=== PATIENT | male | born 1955 | race Caucasian/White ===

== ENCOUNTER 2020-08-21 11:47 | Observation (INO) | payer MEDICARE, OTHER, SELFPAY ==
[2020-08-21] VITALS (9 sets, daily range): BP systolic 128–191; BP diastolic 51–86; PULSE 53–75; RESP 14–22; TEMP 36–36.6; O2SAT 92–95; BMI 43.7
--- NOTE | 2020-08-21 11:59 | ED.NEUROSD ---
HPI - Neuro Symptoms/Deficit General Chief Complaint: Neuro Symptoms/Deficit Stated Complaint: right side drooling, feels weird Time Seen by Provider: 08/21/20 11:49 Source: patient and family Mode of arrival: Ambulatory Limitations: no limitations History of Present Illness HPI Narrative: 64-year-old male smoker with coronary artery disease (2 prior MIs), hypertension, hyperlipidemia, COPD presents with his in the chief complaint of neurologic symptoms that have been present since he awoke yesterday morning. states his last known normal was Saturday evening at bedtime. Since yesterday he has been complaining of slurring speech, some right-sided facial weakness, drooling and he states that he had a hard time getting his coffee mug to his mouth. He denies any dizziness or lightheadedness. He denies any chest pain or shortness of breath. He has had no fever or chills. He denies any trauma or head injuries. He has never had a stroke or a TIA before. He denies any changes medications. He is not activated as a code stroke as he is outside of any interventional window based on time last seen normal. Onset (ago): day(s) Timing confirmed by: spouse Location: speech, right face and dysarthria History of same: No Severity: moderate Quality: weak and numb Relieving factors: none Exacerbating factors: none Context: other On Anticoagulants: No Associated symptoms: denies other symptoms Treatments Prior to Arrival: none Related Data Home Medications Medication Instructions Recorded Confirmed ASPIRIN (Aspirin Low Dose) 81 mg PO Q DAY #0 06/22/07 Clopidogrel Hydrogen Sulfate 75 mg PO Q DAY #0 06/22/07 (Plavix) Metoprolol Tartrate (Lopressor) 50 mg PO BID #0 06/22/07 Simvastatin (Zocor) 40 mg PO #0 06/22/07 Allergies Allergy/AdvReac Type Severity Reaction Status Date / Time No Known Drug Allergies Allergy Verified 08/21/20 12:03 Review of Systems Constitutional Constitutional: Denies chills, Denies fatigue, Denies fever(s), Denies frequent falls, Denies lethargy and Reports weakness Eyes Eyes: Denies change in vision, Denies eye discharge, Denies irritation and Denies loss of vision ENT Ears, Nose, Mouth, and Throat: Denies change in voice, Denies dizziness, Denies neck pain, Denies sore throat and Denies throat swelling Cardiovascular Cardiovascular: Denies chest pain, Denies irregular heart rhythm, Denies lightheadedness, Denies palpitations, Denies dyspnea, Denies dyspnea on exertion and Denies orthopnea Respiratory Respiratory: Denies cough, Denies dyspnea, Denies dyspnea on exertion and Denies wheezing Gastrointestinal Gastrointestinal: Denies abdominal pain, Denies change in bowel habits, Denies diarrhea, Denies nausea and Denies vomiting Musculoskeletal Musculoskeletal: Denies neck pain and Reports numbness Integumentary/Breasts Skin/Breast: Denies pruritus, Denies erythema, Denies rash and Denies wounds Neurologic Neurologic: Reports abnormal speech, Denies behavioral changes, Denies confusion, Denies dizziness, Denies frequent falls, Denies loss of vision, Reports numbness and Reports weakness Psychiatric Psychiatric: Denies anxiety, Denies behavioral changes, Denies confusion, Denies depression, Denies homicidal ideation and Denies suicidal ideation Endocrine Endocrine: Denies fatigue, Denies flushing and Denies palpitations Hematologic/Lymphatic Hematologic/Lymphatic: Denies easy bruising Allergic/Immunologic Allergic/Immunologic: Denies urticaria, Denies throat swelling and Denies wheezing Patient History Medical History CAD (coronary artery disease) COPD (chronic obstructive pulmonary disease) HTN (hypertension) Hyperlipidemia Myocardial infarct Smoker Social History household members: spouse Smoking Status: Current every day smoker alcohol intake: current Smoking Status: Current every day smoker alcohol intake frequency: 0-2 drinks per day Substance Use Type: does not use Exam Narrative Exam Narrative: GENERAL: [64] year old patient appears stated age. Well-nourished, well-developed patient, in mild distress. Ambulating on his own. BMI 43.7 HEAD: Atraumatic. Normocephalic. EYES: Pupils equal round and reactive. Extraocular motions intact. No scleral icterus. No injection or drainage. ENT: Nose without bleeding, purulent drainage. Throat without erythema, tonsillar hypertrophy or exudate. Airway patent. NECK: Trachea midline. Non tender CARDIOVASCULAR: Regular rate and rhythm without murmurs, gallops, or rubs. RESPIRATORY: Decreased breath sounds bilaterally with prolonged expiratory phase and some expiratory wheeze throughout GASTROINTESTINAL: Abdomen soft, non-tender, nondistended. EXTREMITIES: No edema or joint tenderness. BACK: Nontender without deformity or crepitance. No flank tenderness. NEURO: AOx3. SKIN: No rash or erythema of visible areas Initial Vital Signs Initial Vital Signs: Vital Signs Temperature 97.8 F 08/21/20 11:57 Pulse Rate 64 08/21/20 11:57 Respiratory Rate 22 08/21/20 11:57 Blood Pressure 191/86 H 08/21/20 11:57 Pulse Oximetry 95 08/21/20 11:57 Scores NIH Stroke Scale Level of Conciousness: Alert, keenly responsive Ask month/age: Answers both questions correctly. Open/close eyes, close hand: Performs both tasks correctly Best gaze horizontal: Normal Visual payne: No visual loss Facial palsy: Minor paralysis, flattened nasolabial fold, asymmetry on smiling Left arm drift: No drift for full 10 sec Right arm drift: No drift for full 10 sec Left leg drift: No drift for full 5 sec Right leg drift: No drift for full 5 sec Limb ataxia: Absent Sensory on face/arms/legs: Normal, no sensory loss Best language: No aphasia, normal Dysarthria: Mild to mod,some slurring Extinction or inattention: No abnormality Total NIH Stroke scale score: 2 Course Orders Ordered: ED Orders 08/21/20 11:59 CT head/brain wo con Stat XR chest 1V Stat Urine Drug Screen, Rapid Stat EKG-12 Lead Stat 08/21/20 12:00 COVID19 Stat 08/21/20 12:25 Basic Metabolic Panel Stat Complete Blood Count AUTO DIFF Stat Partial Thromboplastin Time Stat Prothrombin Time INR Stat Troponin & CK Cardiac Panel Stat Sodium Chloride (Normal Saline 0.9%) 1,000 mls @ 150 mls/hr IV CONT BRENDAN Last Infusion: 08/21/20 13:32 Dose: 0 mls/hr Documented by: Admin: 08/21/20 12:43 Dose: 150 mls/hr Documented by: GIRMA Discontinued Medications Aspirin (Aspirin 81 Mg Chew Tab) 324 mg PO NOW ONE Stop: 08/21/20 13:01 Last Admin: 08/21/20 13:07 Dose: 324 mg Documented by: CHRISTIANO Vital Signs Vital signs: Vital Signs - 8 hr 08/21/20 11:57 08/21/20 11:59 08/21/20 12:00 Temperature 97.8 F Pulse Rate 64 66 64 Respiratory Rate 22 Blood Pressure 191/86 H 191/86 H Pulse Oximetry 95 94 92 08/21/20 12:30 Temperature Pulse Rate 60 Respiratory Rate 17 Blood Pressure 152/70 H Pulse Oximetry 92 MDM - Neuro Symptoms/Deficit Lab Data Result diagrams: 08/21/20 12:25 08/21/20 12:25 Labs: Lab Results 08/21/20 08/21/20 08/21/20 Range/Units 12:00 12:25 12:25 WBC 9.1 (4.5-11.0) X10^3/uL RBC 5.04 (4.5-5.9) X10^6/uL Hgb 16.1 (13.5-17.5) g/dL Hct 48.7 (41-53) % MCV 96.6 (80-100) fL MCH 32.0 (26-34) PG MCHC 33.1 (30-36) % RDW 13.4 (11.6-14.8) % Plt Count 191 (150-400) X10^3/uL Neut % (Auto) 64.1 (50-75) % Lymph % (Auto) 26.4 (25-40) % Rabun % (Auto) 7.5 (3-14) % Eos % (Auto) 1.2 L (2-4) % Baso % (Auto) 0.8 (0-2) % Neut # (Auto) 5800 (1940-0704) /uL Lymph # (Auto) 2400 (2293-9617) /uL Rabun # (Auto) 700 (0-900) /uL Eos # (Auto) 100 (0-450) /uL Baso # (Auto) 100 (0-100) /uL PT 11.4 (10.1-12.7) SECONDS INR 1.0 (0.9-1.3) APTT 31 (26.4-36.2) SECONDS Sodium (137-145) mmol/L Potassium (3.4-5.1) mmol/L Chloride (98-107) mmol/L Carbon Dioxide (22-32) mmol/L BUN (9-20) mg/dL Creatinine (0.66-1.25) mg/dL Estimated GFR (>60) mL/min BUN/Creatinine Ratio (6-22) Glucose (80-110) mg/dL Calcium (8.4-10.2) mg/dL Total Creatine Kinase (55-170) U/L CK-MB (CK-2) (<2.37) ng/mL CK-MB (CK-2) Rel Index (1.5-5.0) % Troponin I (0.01-0.034) ng/mL SARS-CoV-2 (PCR) Negative (Negative) 08/21/20 Range/Units 12:25 WBC (4.5-11.0) X10^3/uL RBC (4.5-5.9) X10^6/uL Hgb (13.5-17.5) g/dL Hct (41-53) % MCV (80-100) fL MCH (26-34) PG MCHC (30-36) % RDW (11.6-14.8) % Plt Count (150-400) X10^3/uL Neut % (Auto) (50-75) % Lymph % (Auto) (25-40) % Rabun % (Auto) (3-14) % Eos % (Auto) (2-4) % Baso % (Auto) (0-2) % Neut # (Auto) (7038-6704) /uL Lymph # (Auto) (2581-7598) /uL Rabun # (Auto) (0-900) /uL Eos # (Auto) (0-450) /uL Baso # (Auto) (0-100) /uL PT (10.1-12.7) SECONDS INR (0.9-1.3) APTT (26.4-36.2) SECONDS Sodium 138 (137-145) mmol/L Potassium 4.5 (3.4-5.1) mmol/L Chloride 102 (98-107) mmol/L Carbon Dioxide 32 (22-32) mmol/L BUN 15 (9-20) mg/dL Creatinine 0.63 L (0.66-1.25) mg/dL Estimated GFR > 60.0 (>60) mL/min BUN/Creatinine Ratio 23.8 H (6-22) Glucose 172 H (80-110) mg/dL Calcium 8.5 (8.4-10.2) mg/dL Total Creatine Kinase 131 (55-170) U/L CK-MB (CK-2) 3.52 H (<2.37) ng/mL CK-MB (CK-2) Rel Index 2.7 (1.5-5.0) % Troponin I 0.065 H (0.01-0.034) ng/mL SARS-CoV-2 (PCR) (Negative) Point of Care Testing Glucose POC [address] scan - head: Radiologist's Impression: [address] [id number] Scan ReportSigned Patient: Jesse RojasMR#: [id number]: 4Acct:[id number]/Sex: 64 / MDate of Service: 08/21/20Loc: EDAccession Number: [id number] Procedure: CT head/brain wo con Ordering Provider: Delfin Alba D.O. PROCEDURE: CT HEAD/BRAIN WO CON INDICATIONS: stroke symptoms, outside window for TPA TECHNIQUE: Noncontrast 4.5 mm thick angled axial sections acquired from the foramen magnum to the vertex, with coronal and sagittal reformats. For radiation dose reduction, the following was used: automated exposure control, adjustment of mA and/or kV according to patient size. COMPARISON: [facility], CR, XR CHEST 1V, 08/21/2020, 12:06. FINDINGS: Image quality: Excellent. CSF spaces: Basal cisterns are patent. No extra-axial fluid collections. The ventricles are symmetric in size and shape. Brain: No intracranial bleeds or masses. There is cerebral volume loss for age, with resultant ventricular and sulcal prominence. There are periventricular and deep white matter chronic small vessel ischemic changes. There is a remote appearing infarction seen involving the left basal ganglia/deep white matter. There is intracranial internal carotid artery atherosclerosis. Skull and face: Calvarium and visualized facial bones appear intact, without suspicious lesions. Sinuses: There is moderate mucosal thickening seen involving the left maxillary sinus, with moderate to prominent mucosal thickening within the ethmoid air cells. There is demineralization seen of the medial wall of the left maxillary sinus and the ethmoid air cell septations. Milder mucosal thickening is seen elsewhere. No abnormal fluid is seen within the mastoid air cells. IMPRESSION: No acute intracranial hemorrhage is seen. No acute intracranial process is seen. Remote left basal ganglia/deep white matter infarction. If there is strong clinical suspicion for an acute stroke, please consider an MRI for further evaluation, as it is more sensitive (assuming that there is no contraindication to MRI). Chronic appearing paranasal sinus disease. Dictated by: Richar Murphy M.D. on 08/21/2020 at 11:29 Approved by: Richar Murphy M.D. on 08/21/2020 at 11:31 Chest x-ray: Radiologist's Impression: [address] [id number] ReportSigned Patient: Joss Rojas#: [id number]: 4Acct:[id number]/Sex: 64 / MDate of Service: 08/21/20Loc: EDAccession Number: [id number] Procedure: XR chest 1V Ordering Provider: Delfin Alba D.O. PROCEDURE: XR CHEST 1V INDICATIONS: stroke evaluation, weakness TECHNIQUE: One view of the chest was acquired. COMPARISON: [facility], CT, CT ANGIO CHEST PE, 01/11/2020, 23:29. [facility], CT, CT HEAD/BRAIN WO CON, 08/21/2020, 12:00. [facility], CR, CHEST 1 VIEW, 06/22/2007, 13:40. FINDINGS: This study is limited by body habitus. Surgical changes and devices: None. Lungs and pleura: Mild interstitial prominence can be seen. No pleural effusions or pneumothorax. Mediastinum: The cardiac contours are within normal limits. The aorta demonstrates calcification and tortuosity. Bones and chest wall: No suspicious bony lesions. Overlying soft tissues appear unremarkable. IMPRESSION: Mild interstitial prominence can be seen. Differential diagnosis includes artifact and mild pulmonary edema. Dictated by: Richar Murphy M.D. on 08/21/2020 at 11:27 Approved by: Richar Murphy M.D. on 08/21/2020 at 11:29 ECG Data Attestation: I personally reviewed and interpreted this ECG as follows: Interpretation: Normal sinus rhythm, rate 64. Occasional PVCs. No obvious ST segmental elevations or depressions. No T-wave inversions Discharge Plan Departure Patient Disposition: Admitted As Inpatient Clinical Impression: Cerebrovascular accident Qualifiers: CVA mechanism: unspecified Qualified Code(s): I63.9 - Cerebral infarction, unspecified Admit Date/Time: 08/21/20 13:01 Admit Provider: Balbina Davis
[2020-08-21 12:27] LABS: COVID19 -Nasal RAPID Negative (Negative)
[2020-08-21 12:35] LABS: Add Manual Diff / Slide Review NO; Basophils Absolute Auto 100 /uL (0-100); Basophils Percent Auto 0.8 % (0-2); Eosinophils Absolute Auto 100 /uL (0-450); Eosinophils Percent Auto 1.2 % (2-4); Hematocrit 48.7 % (41-53); Hemoglobin 16.1 g/dL (13.5-17.5); Lymphocytes Absolute Auto 2400 /uL (1100-4500); Lymphocytes Percent Auto 26.4 % (25-40); Mean Corpuscular HGB Conc 33.1 % (30-36); Mean Corpuscular Volume 96.6 fL (80-100); Monocytes Absolute Auto 700 /uL (0-900); Monocytes Percent Auto 7.5 % (3-14); Neutrophils Absolute Auto 5800 /uL (1500-7000); Neutrophils Percent Auto 64.1 % (50-75); Platelet Count 191 X10^3/uL (150-400); Red Blood Cell Count 5.04 X10^6/uL (4.5-5.9); Red Cell Distribution Width 13.4 % (11.6-14.8); White Blood Cell Count 9.1 X10^3/uL (4.5-11.0)
[2020-08-21] MEDS: SODIUM CHLORIDE 0.9% 1,000 ML 150 ML IV (12:43)
[2020-08-21 12:44] LABS: Prothrombin Time 11.4 SECONDS (10.1-12.7)
[2020-08-21 12:46] LABS: PTT Partial Thromboplastin Tim 31 SECONDS (26.4-36.2)
[2020-08-21 12:54] LABS: BUN Creatinine Ratio 23.8 (6-22); Blood Urea Nitrogen 15 mg/dL (9-20); Calcium 8.5 mg/dL (8.4-10.2); Carbon Dioxide 32 mmol/L (22-32); Chloride 102 mmol/L (98-107); Creatine Kinase 131 U/L (55-170); Estimated Glomerular Filt Rate > 60.0 mL/min (>60); Glucose 172 mg/dL (80-110); Potassium 4.5 mmol/L (3.4-5.1); Sodium 138 mmol/L (137-145)
[2020-08-21 13:06] LABS: Troponin I 0.065 ng/mL (0.01-0.034)
[2020-08-21] MEDS: ASPIRIN 81 MG CHEW TAB 324 MG PO (13:07)
[2020-08-21 13:09] LABS: CKMB % Relative Index 2.7 % (1.5-5.0); Creatine Kinase MB 3.52 ng/mL (<2.37)
[2020-08-21 13:10] LABS: HEMOLYSIS 60 (0-50)
--- NOTE | 2020-08-21 16:16 | DI.ECHO.S_ITS ---
[place] [facility]---------+ [facility] +---------+ : : [address] : [address] : : : : [id number] : : : : Phone: [phone] Echocardiogram Report + + :Name: SAGE GUEVARA Study Date: 08/22/2020 Height: 71 in : :[facility] Weight: 313 lb : : Gender: Male BSA: 2.6 m2 : :: 1955 Age: 64 yrs BP: 128/72 mmHg: :Reason For Study: R/O EMBOLIC FOCUS : :Ordering Physician: NEAL, : :LEESA Performed By: Elke Fierro : :Referring: LEESA DE JESUS : + + Interpretation Summary 1) Mild to moderately enlarged left ventricle with mildly reduced systolic function (EF 45-50%). 2) Apical septum and apical inferior wall are severely hypokinetic. The distal anterior wall and distal anterolateral wall extending to the apex are hypokinetic. 3) There is no thrombus on the left ventricle. 4) The right ventricle grossly appears normal in size with probable normal systolic function. 5) No significant valvular abnormalities. 6) Compared to the Echo done 01/12/2020, distal anterolateral wall hypokinesis is new on this study. Procedure: A two-dimensional transthoracic echocardiogram with color flow and Doppler was performed. The study quality was technically adequate. A contrast injection of Definity was performed to improve assessment of LV function. Comparison is made with the echocardiogram of 01/12/2020. The patient was in sinus bradycardia with heart rates between 56-64 bpm during the exam. Left Ventricle: The estimated left ventricular end diastolic volume is 207 ml. The left ventricle is moderately dilated. There is normal left ventricular wall thickness. There is no thrombus. The ejection fraction is estimated to be 45-50%. Apical septum and apical inferior wall are severely hypokinetic. The distal anterior wall and distal anterolateral wall extending to the apex are hypokinetic. Right Ventricle: The right ventricle grossly appears normal in size with probable normal systolic function. Atria: Borderline left atrial enlargement. Right atrial size is normal. There is no Doppler evidence for an interatrial shunt. Mitral Valve: There is mild mitral annular calcification. The mitral valve leaflets appear mildly thickened, but open well. There is trace mitral regurgitation. Aortic Valve: The aortic valve is trileaflet. The aortic valve is mildly calcified. There is no aortic valve stenosis. No aortic regurgitation is present. Tricuspid Valve: The tricuspid valve is not well visualized, but is grossly normal. No tricuspid regurgitation. Pulmonary artery pressures cannot be estimated because of the lack of a measurable TR jet velocity but the IVC suggests a CVP of around 3 mmHg. Pulmonic Valve: The pulmonic valve leaflets are thin and pliable; valve motion is normal. There is no pulmonic valvular regurgitation. Great Vessels: The aortic root is normal size. The dimensions of the ascending aorta are normal. The IVC is of normal diameter and collapses greater than 50% with a sniff. This suggests a low right atrial pressure of 3 mm Hg. Pericardium/ Pleura There is no pericardial effusion. There is no pleural effusion. MMode/2D Measurements & Calculations LVIDd: 6.3 cm LVOT diam: 2.2 cm EPSS: 2.4 cm Ao root diam: 3.8 cm IVSd: 1.1 cm asc Aorta Diam: 3.2 cm LVPWd: 0.98 cm LV gómez. diameter/BSA (cm/m^2): 2.5 LA A2 area: 25.0 cm2 RA long axis: 5.0 cm LA A4 area: 21.1 cm2 RA area: 17.3 cm2 LA length (vol): 5.3 cm RA vol: 51.3 ml LA vol: 85.3 ml RA : 20.1 ml/m2 LA vol index: 33.4 ml/m2 IVC diam: 1.7 cm RVD1 (basal): 3.7 cm TAPSE: 3.1 cm Doppler Measurements & Calculations Ao V2 max: 179.2 cm/sec LVOT Max Elian: 67.4 cm/sec Ao V2 mean: 133.2 cm/sec LV V1 max P.8 mmHg Ao max P.8 mmHg LV V1 VTI: 16.5 cm Ao mean P.5 mmHg LILLIE(I,D): 1.5 cm2 Ao V2 VTI: 42.1 cm LILLIE(V,D): 1.5 cm2 sev ratio: 0.39 LILLIE indexed to BSA (cm^2/m^2): 0.59 MV E max elian: 85.8 cm/sec PA V2 max: 80.4 cm/sec MV A max elian: 112.1 cm/sec PA V2 mean: 50.3 cm/sec MV E/A: 0.77 PA mean P.2 mmHg Med Peak E' Elian: 4.7 cm/sec PA pr(Accel): 7.1 mmHg E/E' med: 18.3 Lat Peak E' Elian: 7.3 cm/sec E/E' lat: 11.7 E/e' average: 15.0 MV dec time: 0.30 sec SV(OT): 63.7 ml Reading Physician:02:29 PM
--- NOTE | 2020-08-21 16:19 | P.HP_ITS ---
History of Present Illness History of Present Illness Date Patient Seen: 08/21/20 Chief complaint: right side drooling, feels weird Narrative: The patient is a 64-year-old male with a history of coronary artery disease, COPD, type 2 diabetes, hypertension, hyperlipidemia who was in his [facility] until Saturday morning. The patient awoke from sleep and felt ?not right. He states he went to have coffee in noted drooling out the right side of his mouth, he also noted that when he tried to bring his cup to his mouth he was unable to do so. He had some associated right hand right arm weakness. He had a twinge of pain in the right arm. He reports that his speech is abnormal in not as crisp as usual. The patient has no history of stroke. He presented to the emergency room for evaluation. In the emergency plating department helper CT was obtained which was negative. Patient had a EKG which showed no acute ST-T changes. Patient is on Plavix and aspirin for his cardiac disease. He also reports smoking a pack per day. He has no family history of stroke. Patient is admitted to the hospital for inpatient evaluation probable stroke Patient History Medical History CAD (coronary artery disease) COPD (chronic obstructive pulmonary disease) Diabetes mellitus HTN (hypertension) Hyperlipidemia Myocardial infarct Other bursal cyst, left elbow Patent pressure equalization (PE) tubes, bilateral Smoker Surgical History H/O heart artery stent H/O: vasectomy Family & Social History Family History (Updated 08/21/20 @ 16:24 by Balbina Davis MD) Mother Cancer Father Alcoholic dependence syndrome Social History: household members spouse Prior Living Arrangements House Safety & Behavioral: Feels Safe in Current Yes Environment Been Physically Hurt or No Threatened By a Person Suicidal Ideation Description None Suicide Plan Description No Plan Tobacco & Substance use: Tobacco type cigarettes Smoking Status Current every day smoker Smoking packs per day 1 alcohol intake current alcohol intake frequency holiday/special occasion Substance Use Type does not use Meds Home Medications and Allergies Home Medications Medication Instructions Recorded Confirmed Type ASPIRIN (Aspirin Low Dose) 81 mg PO Q DAY #0 06/22/07 08/21/20 History Clopidogrel Hydrogen Sulfate 75 mg PO Q DAY #0 06/22/07 History (Plavix) Metoprolol Tartrate (Lopressor) 50 mg PO BID #0 06/22/07 History Simvastatin (Zocor) 40 mg PO #0 06/22/07 History metformin 1,000 mg PO BID 08/21/20 08/21/20 History Allergies Allergy/AdvReac Type Severity Reaction Status Date / Time animal dander AdvReac Verified 08/21/20 15:02 grass pollen AdvReac Verified 08/21/20 15:02 pollen extracts AdvReac Verified 08/21/20 15:02 Review of Systems Review of Systems ROS: Yes All systems reviewed with the patient and are negative except as otherwise documented Exam Vital Signs (past 8 hours): - 08/21/20 11:57 08/21/20 11:59 08/21/20 12:00 Temperature 97.8 F Pulse Rate 64 66 64 Respiratory Rate 22 Blood Pressure 191/86 H 191/86 H Pulse Oximetry 95 94 92 08/21/20 12:30 08/21/20 13:45 Temperature 97.4 F L Pulse Rate 60 61 Respiratory Rate 17 20 Blood Pressure 152/70 H 161/58 H Pulse Oximetry 92 94 Oxygen Delivery Method Room Air Oxygen Flow Rate 0 Narrative Exam Narrative: Pleasant obese male sitting in a chair in no obvious distress HEENT: Normocephalic atraumatic, extraocular muscles are intact oropharynx is clear, patient's speech is dysarthric, he has right facial droop with drooling on the right side of the mouth Oropharynx is clear, neck is supple, there is no carotid bruits, thyromegaly or adenopathy Lungs: Decreased breath sounds with diffuse wheezing bilaterally, with scattered rhonchi Cardiac exam: Regular rate and rhythm normal S1-S2 Abdomen: Soft nontender nondistended, protuberant belly no appreciable hepatosplenomegaly Extremities: 1+ edema on the right, trace edema on the left Neuro exam: NIHSS score of 2 Patient has right facial droop, drooling out of the right side, mild dysarthria of speech Psychiatric exam: The patient is awake and alert and appropriate, no hallucinations, no delusions, Objective Labs Result Diagrams: 08/21/20 12:25 08/21/20 12:25 Labs: Laboratory Results - last 24 hr 08/21/20 08/21/20 08/21/20 12:00 12:25 12:25 WBC 9.1 RBC 5.04 Hgb 16.1 Hct 48.7 MCV 96.6 MCH 32.0 MCHC 33.1 RDW 13.4 Plt Count 191 Neut % (Auto) 64.1 Lymph % (Auto) 26.4 Braxton % (Auto) 7.5 Eos % (Auto) 1.2 L Baso % (Auto) 0.8 Neut # (Auto) 5800 Lymph # (Auto) 2400 Braxton # (Auto) 700 Eos # (Auto) 100 Baso # (Auto) 100 PT 11.4 INR 1.0 APTT 31 Sodium Potassium Chloride Carbon Dioxide BUN Creatinine Estimated GFR BUN/Creatinine Ratio Glucose Calcium Total Creatine Kinase CK-MB (CK-2) CK-MB (CK-2) Rel Index Troponin I SARS-CoV-2 (PCR) Negative 08/21/20 12:25 WBC RBC Hgb Hct MCV MCH MCHC RDW Plt Count Neut % (Auto) Lymph % (Auto) Braxton % (Auto) Eos % (Auto) Baso % (Auto) Neut # (Auto) Lymph # (Auto) Braxton # (Auto) Eos # (Auto) Baso # (Auto) PT INR APTT Sodium 138 Potassium 4.5 Chloride 102 Carbon Dioxide 32 BUN 15 Creatinine 0.63 L Estimated GFR > 60.0 BUN/Creatinine Ratio 23.8 H Glucose 172 H Calcium 8.5 Total Creatine Kinase 131 CK-MB (CK-2) 3.52 H CK-MB (CK-2) Rel Index 2.7 Troponin I 0.065 H SARS-CoV-2 (PCR) Assessment & Plan Assessment & Plan narrative: 1. 64-year-old male admitted to the hospital with abrupt onset neurological symptoms. His symptoms of right facial droop, dysarthria, right hand weakness highly suggestive of an acute ischemic event -head CT is unremarkable for an acute bleed, there is a remote deep white matter basal ganglia infarct noted which is old -patient did attempt head MRI is unable to tolerated -clinical symptoms highly suggestive of a left MCA CVA -will continue aspirin and Plavix given history cardiac disease, if the patient could switch from aspirin and Plavix could consider Aggrenox instead for stroke prophylaxis -will obtain cardiac echo to rule out an embolic focus -will obtain a fasting lipid profile, and increase atorvastatin to 80 mg per day -will obtain PT OT and speech consultation -patient will be placed on DVT prophylaxis -patient is encouraged to discontinue smoking as this is likely a major contributor to his stroke 2. Type 2 diabetes -will obtain hemoglobin A1c -will continue metformin as the patient likely will be discharged tomorrow 3. Hypertension -will continue metoprolol 50 b.i.d. -given recent ischemic event will allow for permissive hypercapnia and not over treat high blood pressure 4. Hyperlipidemia -will obtain a fasting lipid profile -will start atorvastatin 80 mg a day 5. Morbid obesity -likely contributing to metabolic syndrome resulting in coronary disease and stroke -dietary consultation 6. Tobacco dependence -offered nicotine patch which the patient except -smoking cessation counseling ensued Patient reports he is a full code His is his surrogate decision maker Anticipate discharge home tomorrow following cardiac echo Consider open MRI as he was unable to tolerate are MRI here to definitively evaluate for an acute stroke Quality VTE Deep Vein Thrombosis/Pulmonary Embolism Present on Admission: No
[2020-08-21] MEDS: SODIUM CHLORIDE 0.9% 1,000 ML 84 ML IV (16:55)
[2020-08-21] MEDS: NICOTINE 21 MG PATCH TOP (16:58)
[2020-08-21 18:14] LABS: Thyroid Stimulating Hormone 3.24 uIU/mL (0.47-4.68)
[2020-08-21 18:17] LABS: Hemoglobin A1C% w Est Avg Glu 10.2 % (4.0-6.0)
[2020-08-21 18:23] LABS: Creatine Kinase 126 U/L (55-170)
[2020-08-21 18:36] LABS: Troponin I 0.078 ng/mL (0.01-0.034)
[2020-08-21 18:39] LABS: Creatine Kinase MB 3.74 ng/mL (<2.37)
[2020-08-21] MEDS: FLUTICASONE/SALMETEROL 500/50 60 PUFF DISKUS INH (19:23)
[2020-08-21] MEDS: ALBUTEROL/IPRATROPIUM 3 ML AMPUL INH (19:24)
[2020-08-21] MEDS: GLUCAGON,HUMAN RECOMBINANT 1 MG/ML VIAL IV (21:16)
[2020-08-22] VITALS (9 sets, daily range): BP systolic 142–161; BP diastolic 70–84; PULSE 57–67; RESP 16–22; TEMP 35.9–36.6; O2SAT 91–94
--- NOTE | 2020-08-22 00:21 | PC.NURSE ---
2305 Received safe hand-off report. The patient is currently sleeping on his left side with HOB elevated to 30 degrees. He is on room air and has a left AC PIV with NS infusing at 84mL/h. Labs show he has had an elevated troponin x2, but currently denies chest pain, SOB, dizziness, n/v. He is on aspiration precautions and NPO. Lung sounds of the anterior upper lobe exhibit inspiratory and expiratory wheezing. Last blood glucose was 73 at 2111; will repeat at 0200. The bed alarm is on. No s/sx of distress.
[2020-08-22] MEDS: DEXTROSE 5%-0.9% NS 1,000 ML 84 ML IV ×2 (01:59→14:00)
[2020-08-22 02:00] LABS: UR Morphine/Opiate cutoff 300 Negative (Negative); Ur Creatinine 50 (Normal); Ur Specific Gravity 1.025 (Normal); Urine Amphetamines Negative (Negative); Urine Barbiturates Negative (Negative); Urine Benzodiazepines Negative (Negative); Urine Cocaine Negative (Negative); Urine MDMA Negative (Negative); Urine Methadone Negative (Negative); Urine Methamphetamines Negative (Negative); Urine Oxycodone Negative (Negative); Urine Phencyclidine Negative (Negative); Urine Tetrahydrocannabinol Negative (Negative); Urine Tricyclic Antidepressant Negative (Negative); Urine pH 5 (Normal)
[2020-08-22] MEDS: ALBUTEROL/IPRATROPIUM 3 ML AMPUL INH ×2 (07:55→13:04)
[2020-08-22] MEDS: FLUTICASONE/SALMETEROL 500/50 60 PUFF DISKUS INH (07:55)
[2020-08-22] MEDS: METOPROLOL ER 50 MG TABLET PO (09:18)
[2020-08-22] MEDS: ASPIRIN EC 81 MG TABLET PO (09:18)
[2020-08-22] MEDS: CLOPIDOGREL 75 MG TABLET PO (09:18)
[2020-08-22] MEDS: ENOXAPARIN 40 MG/0.4 ML SYRINGE SUBCUT (09:18)
--- NOTE | 2020-08-22 10:05 | PT.IIE ---
Surgical History (Last Reviewed 08/21/20 @ 16:23 by Balbina Davis MD) H/O heart artery stent H/O: vasectomy Medical History CAD (coronary artery disease) COPD (chronic obstructive pulmonary disease) Diabetes mellitus HTN (hypertension) Hyperlipidemia Myocardial infarct Other bursal cyst, left elbow Patent pressure equalization (PE) tubes, bilateral Smoker Physical Therapy Inpatient Evaluation/Re-Eval M1 PT/OT-IP Prior Functional Status Start: 08/22/20 08:54 Freq: NEEDED Status: Active Protocol: Document 08/22/20 10:05 AW (Rec: 08/22/20 11:25 AW [id number]) Medical Review Prior Functional Status Medical History Reviewed Yes Communication WNL. Pt is an effective verbal communicator. Pt's often tells him he is soft-spoken at baseline. On evaluation, pt has slightly slurred speech. Pt is aware and states it's not as crisp as usual. Mobility and Gait Independent without assistive device but winded after a few blocks. Activities of Daily Living and IADL's Independent with all I/ADL's Prior Functional Level (Other details) Pt denies any falls in the past year. Social History Household Members spouse Living Arrangements House Number of Floors (Floors) One Floor Number of Stairs To Enter/Railing? 3 MERARY ih wide bilateral rails Home Environment Standard Height Toilet,Tub/ Shower Employment Status Retired Additional Social History Comment Pt is retired from the [employer]. He lives with his , Praveena, who is available and able to assist as needed. M2 PT-IP Current Condition Start: 08/22/20 08:54 Freq: NEEDED Status: Active Protocol: Document 08/22/20 10:05 AW (Rec: 08/22/20 11:25 AW [id number]) Physical Therapy Current Condition Current Condition Evaluation Date 08/22/20 Treatment Diagnosis R-sided weakness, impaired proprioception, difficulty in walking Onset Date 08/20/20 M3 PT-IP Subjective Start: 08/22/20 08:54 Freq: NEEDED Status: Active Protocol: Document 08/22/20 10:05 AW (Rec: 08/22/20 11:25 AW [id number]) Subjective Physical Therapy Visit Type Type Initial Evaluation Visit Start Time 09:36 Visit Stop Time 10:05 Total Visit Minutes 29 Notes Pt has history of COPD and is a current smoker. A1C 10.[address] head was negative except for remote appearing infarction seen involving the left basal ganglia/deep white matter. There is intracranial internal carotid artery atherosclerosis. Brain MRI was unobtainable as pt could not tolerate closed MRI. Number of COSTUMING SUPERVISOR Visits 0 Physical Therapy Visit Comments Patient Comments I could just tell something was 'off.' I lifted my coffee cup and it should have been at my mouth but it was still an inch away from the target. Patient Goals Pt wants to return home. Therapy Pain Assessment Pain When Pain Assessed During Mobility Pain Present Pain Present Denied Pain M4 PT-IP Mobility and Gait Start: 08/22/20 08:54 Freq: NEEDED Status: Active Protocol: Document 08/22/20 10:05 AW (Rec: 08/22/20 11:25 AW [id number]) PT-Transfer Assessment Sit to and From Stand Sit to and from Stand Standby Assistance Equipment Transfer Assistive Device Gait Belt Orthotic/Prosthetic Devices or Brace: No Transfers Transfer Destination Chair Transfer Technique Stand Step Pivot Transfer Ability Level of Assist Standby Assistance Comments Mobility Comments Pt was sitting up in the chair as PT arrived. He was working with the POT PRESS OPERATOR to get changed and cleaned up. PT observed pt standing at the sink performing hygiene with SBA. Pt moves somewhat impulsively and required cues to slow down . PT then took over as pt transferred to the chair SBA. After seated assessment, pt stood again and ambulated around the unit a total of 220 feet SBA to CGA, completing 4 -item DGI along the way. On return to the room, pt sat in the chair again. BP was 154/62 HR 60. Gait Assessment Gait Gait Assistance Required: Standby Assistance,Contact Guard Assist Distance (Feet) 220 Assistive Devices Assistive Device None,Gait Belt Orthotic/Prosthetic Devices or Brace: No Gait Deviations General Gait Pattern Decreased Feet Clearance, Lateral Trunk Lean,Wide Based Gait Factors Limiting Gait Function Factors Limiting Gait Function Decreased Strength,Poor Balance,Poor Safety Awareness Comments Gait Comments Pt ambulated in the halls without AD. He scored 9/12 on 4-item DGI with single points deducted for gait with head turns, gait with head nods, and gait with speed changes. Pt had minor path deviations and LOB requiring CGA during head movements. Stair Climbing Assessment Evaluation Level of Assist On Stairs Standby Assistance Technique/Endurance Stair Climbing Direction Ascend and Descend Stair Climbing Technique Step Over Step,Step to Step Number of Steps Climbed 3 Query Text: Stair Climbing Set # Repetitions (reps) 2 PT-Balance Assessment Sitting Balance and Reactions Static Sitting Balance Ability Normal Dynamic Sitting Balance Ability Normal Standing Balance and Reactions Static Standing Balance Ability Good Dynamic Standing Balance Ability Fair Device Used none Balance Tests Romberg WNL EO; increased sway EC Tandem Standing unable Functional Assessments Functional Tests Dynamic Gait Index 4-item DGI: 04/30 M5 PT-IP Objective Assessments Start: 08/22/20 08:54 Freq: NEEDED Status: Active Protocol: Document 08/22/20 10:05 AW (Rec: 08/22/20 11:25 AW [id number]) Orientation Orientation/Cognition Level of Alertness Alert Orientation Name,Day of Week,Place, Situation Language Function Ability No Deficits Noted Safety Awareness Decreased Safety Awareness Memory Description No Deficits Noted Gross Range of Motion Upper Extremity ROM Assessment Within Functional Limits Lower Extremity ROM Assessment Within Functional Limits Strength Upper Extremity Strength Assessment Right Impaired Lower Extremity Strength Assessment Right Impaired Comments Strength Comments RUE/LE grossly 4+/5; LUE/LE grossly 5/5 Coordination Assessment Gross Coordination Gross Coordination Impaired Assessment Finger to Nose Test Minimal Impairment Pronation/Supination Test Normal Performance Foot Tapping Test Normal Performance Coordination Comments Missed targets with RUE <1cm on multiple attempts Sensation Assessment Sensation Gross Sensation WNL,Right UE Impaired Proprioception (Position) Impaired Comments Sensation Comments Pt reports mismatch between perceived motor output and actual motor output. I lift my coffee cup and it feels like it should be at my mouth but it's not quite there. Muscle Tone Muscle Tone WNL Yes M6 PT-IP Treatment Start: 08/22/20 08:54 Freq: NEEDED Status: Active Protocol: Document 08/22/20 10:05 AW (Rec: 08/22/20 11:25 AW [id number]) Physical Therapy Treatment Education Education Provided Safety Other Treatments Other Treatment Performed Provided education on role of PT, plan of care, and recommendation for outpatient PT to address dynamic balance and proprioception deficits. M7 PT-IP Assessment and Plan Start: 08/22/20 08:54 Freq: NEEDED Status: Active Protocol: Document 08/22/20 10:05 AW (Rec: 08/22/20 11:25 AW [id number]) PT Summary Assessment and Plan Potential Rehabilitation Potential Good Status of Condition at Evaluation Evolving Summary Impairments Strength,Balance,Sensation, Gait,Activity Tolerance Assessment Summary Jesse is a 64yo is a right- handed man seen for PT evaluation after being admitted with RUE and right facial weakness, dysarthria. Head CT noted prior remote appearing infarction of the left basal ganglia/deep white matter and intracranial internal carotid artery atherosclerosis. He is independent in all regards at baseline. On evaluation, he presents with impaired proprioception on the RUE and impaired dynamic balance. Speech remains slurred. 4-item DGI score of 9/12 indicates increased risk of falling. Pt would benefit from outpatient PT to address these deficits and mitigate increase falls risk. Goals Bed Mobility Goal Independent Transfer Goal Independent Gait Goal Independent Gait Distance 300 Other Goals - up/down 3 steps with unilateral rail IND Days to Meet Goals 5 Frequency of Treatment Frequency Of Treatment Once a Day Treatment Plan Physical Therapy Treatment Plan Bed Mobility Training,Transfer Training,Gait Training, Therapeutic Exercise,Balance Retraining,Discharge Planning, Neuromuscular Re-ed Other Recommendations and Next Treatment Full DGI or FGA; dynamic Focus balance training Recommendations To Nursing Amount of Assist Needed Standby Assistance Discharge Recommendations PT Discharge Recommendations Home,Outpatient PT Transportation Needs at Discharge Private Vehicle
--- NOTE | 2020-08-22 12:48 | DI.CT.S_ITS ---
PROCEDURE: CT ANGIO HEAD AND NECK INDICATIONS: Clinical concern for carotid disease TECHNIQUE: Pre-contrast 4.5 mm thick sections acquired from the foramen magnum to the vertex. After the administration of intravenous contrast, 1 mm thick sections acquired from the aortic arch through the [place]. Post-contrast 4.5 mm thick sections then re-acquired from the foramen magnum to the vertex. 3-dimensional [id number] (MIP) and/or volume rendering reformats were acquired of the central intracranial vasculature and neck separately. COMPARISON: [facility], CT, CT HEAD/BRAIN WO CON, 08/21/2020, 12:00. FINDINGS: Image quality: Excellent. BRAIN: CSF spaces: Ventricles are normal in size and shape. Basal cisterns are patent. No extra-axial fluid collections. Brain: No midline shift. No intracranial bleeds or masses. Lao-white matter interface appears intact. There is a remote infarction involving the left basal ganglia/deep white matter, which is stable compared to the prior. Skull and face: Calvarium and facial bones appear intact, without suspicious lesions. Orbits appear normal. Sinuses: Moderate mucosal thickening is seen within the left maxillary sinus and there is more moderate to prominent mucosal thickening within the ethmoid air cells. Mild mucosal thickening is seen within the other paranasal sinuses. No abnormal fluid is seen within the mastoid air cells. HEAD CT ANGIOGRAPHY: Anterior circulation: Intracranial internal carotid arteries demonstrate atherosclerotic irregularity and calcification, with approximately 50% narrowing seen on each side. There is a diminutive right A1 segment, with a corresponding robust left A1 segment. This is considered to be a normal developmental variant of the [place], of typically no clinical consequence. The flow within the paired anterior cerebral arteries is otherwise normal and symmetric. The flow within the middle cerebral arteries is normal and symmetric. The anterior communicating artery is seen. No aneurysms are seen. Posterior circulation: Visualized portions of the vertebral arteries demonstrate normal caliber, and join to form a normal appearing basilar artery. Flow within the posterior cerebral arteries is normal and symmetric. No aneurysms are seen. NECK CT ANGIOGRAPHY: Carotid system: The great vessels demonstrate a conventional anatomy as they arise from the aortic arch. The origins of the common carotid arteries appear patent. The common carotid arteries demonstrate normal caliber and courses. The bifurcation regions demonstrate atherosclerotic irregularity and calcification, right worse than left. There is approximately 30% narrowing seen involving the right proximal internal carotid artery. No significant stenosis can be seen on the left. Posterior circulation: The origins of the vertebral arteries both appear widely patent. The more superior extracranial portions of both vertebral arteries also demonstrate normal courses and calibers. The right vertebral artery is dominant to the left. Soft tissues: Visualized neck soft tissues demonstrate no suspicious abnormalities. Bones: No suspicious bony lesions. Visualized cervical spine appears normally aligned. Age-appropriate bony degenerative changes are seen. IMPRESSION: Within the arteries of the neck, no hemodynamically significant stenosis can be seen. 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 No acute intracranial process is seen. Remote left basal ganglia/deep white matter infarction. Paranasal sinus disease noted. Any quantitative measurements of stenosis were performed using NASCET criteria. Dictated by: Richar Murphy M.D. on 08/22/2020 at 13:08 Approved by: Richar Murphy M.D. on 08/22/2020 at 13:12
--- NOTE | 2020-08-22 13:17 | OT.IP.EVAL ---
Past Medical History CAD (coronary artery disease) COPD (chronic obstructive pulmonary disease) Diabetes mellitus HTN (hypertension) Hyperlipidemia Myocardial infarct Other bursal cyst, left elbow Patent pressure equalization (PE) tubes, bilateral Smoker Surgical History (Last Reviewed 08/21/20 @ 16:23 by Balbina Davis MD) H/O heart artery stent H/O: vasectomy Occupational Therapy Inpatient Evaluation/Re-Eval M1 PT/OT-IP Prior Functional Status Start: 08/22/20 08:54 Freq: NEEDED Status: Active Protocol: Document 08/22/20 10:05 AW (Rec: 08/22/20 11:25 AW [id number]) Medical Review Prior Functional Status Medical History Reviewed Yes Communication WNL. Pt is an effective verbal communicator. Pt's often tells him he is soft-spoken at baseline. On evaluation, pt has slightly slurred speech. Pt is aware and states it's not as crisp as usual. Mobility and Gait Independent without assistive device but winded after a few blocks. Activities of Daily Living and IADL's Independent with all I/ADL's Prior Functional Level (Other details) Pt denies any falls in the past year. Social History Household Members spouse Living Arrangements House Number of Floors (Floors) One Floor Number of Stairs To Enter/Railing? 3 MERARY with wide bilateral rails Home Environment Standard Height Toilet,Tub/ Shower Employment Status Retired Additional Social History Comment Pt is retired from the [employer] and [employer]. He lives with his , Praveena, who is available and able to assist as needed. M1 PT/OT-IP Prior Functional Status Start: 08/22/20 14:48 Freq: NEEDED Status: Active Protocol: Document 08/22/20 12:22 [facility] (Rec: 08/22/20 15:08 [facility] [id number]) Medical Review Prior Functional Status Medical History Reviewed Yes Communication WNL. Pt is an effective verbal communicator. Pt's often tells him he is soft-spoken at baseline. On evaluation, pt has slightly slurred speech. Pt is aware and states it's not as crisp as usual. Mobility and Gait Independent without assistive device but winded after a few blocks. Activities of Daily Living and IADL's Independent with all I/ADL's, pt states able to bring in firewood in big stacks. Prior Functional Level (Other details) Pt denies any falls in the past year. Social History Household Members spouse Living Arrangements House Number of Floors (Floors) One Floor Number of Stairs To Enter/Railing? 3 MERARY ih wide bilateral rails Home Environment Standard Height Toilet,Tub/ Shower Employment Status Retired Additional Social History Comment Pt is retired from the [employer] and [employer]. He lives with his , Praveena, who is available and able to assist as needed. M2 OT-IP Current Condition Start: 08/22/20 14:48 Freq: Status: Active Protocol: Document 08/22/20 12:22 [facility] (Rec: 08/22/20 15:08 [facility] [id number]) Occupational Therapy Current Condition Current Condition Evaluation Date 08/22/20 Treatment Diagnosis Right facial dropp, right hand weakness, dysarthria Diagnosis Onset Date 08/21/20 M3 OT- IP Subjective and Pain Start: 08/22/20 14:48 Freq: Status: Active Protocol: Document 08/22/20 12:22 [facility] (Rec: 08/22/20 15:08 [facility] [id number]) OT- Subjective Occupational Therapy Visit Type Type Initial Evaluation Visit Start Time 12:22 Visit Stop Time 14:45 Total Visit Minutes 65 Notes Pt seen for split treatment [id number] and [id number]. Pt's present in the PM. Occupational Therapy Visit Comments Patient Comments Pt agreed to do OT eval. Patient/Caregiver Goals Pt wanting to go home. OT Pain Assessment Pain When Pain Assessed At Rest Pain Present Pain Present Denied Pain M4 OT- IP ADL's Start: 08/22/20 14:48 Freq: Status: Active Protocol: Document 08/22/20 12:22 [facility] (Rec: 08/22/20 15:08 [facility] [id number]) OT LOA-Eqbq-Cwwfkgs General Evaluation Self-Feeding Ability Independent Comments OT Self-Feeding Comments Pt independent with all set-up and hand to mouth. Pt given cues from TRAINING EXECUTIVE regarding swallowing needs. OT ADL-Grooming Comments OT Grooming Comments NOt performed. OT ADL-Oral Care Comments Oral Care Comments NOt performed. OT ADL-Dressing General Eval Lower Body Dressing Ability Standby Assistance Comments OT Dressing Comments SBA at edge of the recliner to navdeep/doff his socks. Pt gets a little SOB during task. OT ADL-Toileting Comments OT Toileting Comments Pt not javing to go at this time. OT ADL-Bathing Comments OT Bathing Comments Pt states to shower at home. M5 OT- IP IADL's Start: 08/22/20 14:48 Freq: Status: Active Protocol: Document 08/22/20 12:22 [facility] (Rec: 08/22/20 15:08 [facility] [id number]) OT-Instrumental Activities of Daily Living Home Safety Awareness Awareness of Need for Assistance at Home Good Awareness Ability to Problem Solve Emergency Able to Problem Solve Situations Medication Management Medication Management No Deficits Identified Money Management Money Management Comments Pt's pays the bills. Meal Preparation Meal Preparation Caregiver Provides Assist Driving Driving Comments Suggested to have there initially if driving. M6 OT- IP Functional Cognition Start: 08/22/20 14:48 Freq: Status: Active Protocol: Document 08/22/20 12:22 [facility] (Rec: 08/22/20 15:08 [facility] [id number]) Cognitive Factors Limiting Selfcare Function Cognitive Ability Level of Alertness Alert Patient Orientation Name,Age,Birthday,Month,Date, Year,Day of Week,Place, Situation Attention Span Ability Capable of Focused Attention, Capable of Sustained Attention Ability to Follow Commands Able to Follow One Step Commands Memory Description No Deficits Noted Safety Awareness Underestimates Need for Assistance Problem Solving Ability No deficits Noted Cognitive Comments Cognitive Assessment Comments Pt able to follow multipe commands. Pt scored 82 second on [place] making Part B which implies normal but not perfect for executive thinking, speed of precessing, visual attention, mental flexibility, and task switching. OT- Vision and Hearing OT- Hearing Assessment OT- Hearing Assessment WFL OT- Vision Assessment Vision Assessment Comments Pt states wears glasses but did not have with him in the hospital. Pt states able to read without his glasses. M7 OT- IP Mobility and Balance Start: 08/22/20 14:48 Freq: Status: Active Protocol: Document 08/22/20 12:22 [facility] (Rec: 08/22/20 15:08 [facility] [id number]) OT-Transfer Assessment Sit to and From Stand Sit to and from Stand Independent Transfers Transfer Ability Independent Comments Mobility Comments Pt independent in the room for level surfaces. OT- Balance Assessment Sitting Balance and Reactions Static Sitting Balance Ability Normal Dynamic Sitting Balance Ability Normal Standing Balance and Reactions Static Standing Balance Ability Normal M8 OT- IP Objective Assessments Start: 08/22/20 14:48 Freq: Status: Active Protocol: Document 08/22/20 12:22 [facility] (Rec: 08/22/20 15:08 [facility] [id number]) OT Gross Range of Motion Upper Extremity Range of Motion Assessment Within Functional Limits OT Strength Upper Extremity Strength Assessment Within Functional Limits Comments Strength Comments RUE 4+/5 to 5/5 from proximal to distal and LUE 5/5 Fabric Worker Supervisor strength right hand 87. 5lbs, left hand 88.5 lbs. OT- Coordination Assessment Upper Extremity Finger to Nose Test Right UE Impaired Comments Coordination Comments 9 hole peg test right hand 31 .5 seconds less than 10 percentile for age group and left hand 27.5 seconds at around 4o percentile for age group. OT-Muscle Tone Assessment Muscle Tone WNL Yes M9 OT- IP Assessment and Plan Start: 08/22/20 14:48 Freq: Status: Active Protocol: Document 08/22/20 12:22 [facility] (Rec: 08/22/20 15:08 [facility] [id number]) OT Summary Assessment and Plan Potential Rehabilitation Potential Excellent Analytic Complexity at Evaluation Low Summary OT Impairments Strength,Coordination, Functional Mobility,Bathing Progress Towards Goals Progressing Toward Goals Assessment Summary Pt low complexity and main barriers are decreased coordination,strength for right hand and needing to incorporate swallowing techniques learned from TRAINING EXECUTIVE as at times pt coughs while eating. Pt feels that his cough is from his COPD. Pt to go home with to assist as needed. Goals Dressing Goal Independent Toileting Goal Independent Bathing Goal Independent Toilet Transfer Goal Independent Shower Transfer Goal Independent Days to Meet Goals 2 Frequency of Treatment Frequency Of Treatment Once a Day Treatment Plan OT Treatment Plan ADL Training,Functional Mobility,Patient/Family Education,Discharge Planning Other Treatment Recommendations and Next shower if still here Treatment Focus Discharge Recommendations OT Discharge Recommendations Home with Assistance Home Equipment Needs shower chair? Transportation Needs at Discharge Private Vehicle
--- NOTE | 2020-08-22 16:06 | ST.IPIE ---
Visit Care Team Role Provider Type Delfin Alba DO Emergency Provider Physician Referring Provider Specialty: Emergency Medicine Address: [address] [place] [address], [id number] Email: [email or web address] Balbina Davis MD Admit Provider Physician Attending Provider Specialty: Internal Medicine Address: [address] [place] [address], [id number] Email: [email or web address] Past Medical History CAD (coronary artery disease) (Medical) COPD (chronic obstructive pulmonary disease) (Medical) Diabetes mellitus (Medical) HTN (hypertension) (Medical) Hyperlipidemia (Medical) Myocardial infarct (Medical) Other bursal cyst, left elbow (Medical) Patent pressure equalization (PE) tubes, bilateral (Medical) Smoker (Social Hx) ST IP Initial Evaluation Report [employer] Clinical Swallow Evaluation Start: 08/22/20 15:37 Freq: Status: Active Protocol: Document 08/22/20 15:37 [facility] (Rec: 08/22/20 16:06 [facility] [id number]) Clinical Swallow Evaluation Session Time Visit Start Time 12:10 Visit Stop Time 12:35 Total Visit Minutes [address] Balbina Davis Reason for Referral CVA Setting Assessment Location Acute Care Visit Type Note Type Initial evaluation Next Note Type Next Note Type Treatment Note Patient Information Identification Type Name,ID Card History Per H&P: The patient is a 64- year-old male with a history of coronary artery disease, COPD, type 2 diabetes, hypertension, hyperlipidemia who was in his usual state of health until Saturday morning. The patient awoke from sleep and felt ?not right. He states he went to have coffee in noted drooling out the right side of his mouth, he also noted that when he tried to bring his cup to his mouth he was unable to do so. He had some associated right hand right arm weakness. He had a twinge of pain in the right arm. He reports that his speech is abnormal in not as crisp as usual. The patient has no history of stroke. He presented to the emergency room for evaluation. In the emergency supervisor extruding department CT was obtained which was negative. Patient had a EKG which showed no acute ST-T changes. Patient is on Plavix and aspirin for his cardiac disease. He also reports smoking a pack per day. He has no family history of stroke. Patient is admitted to the hospital for inpatient evaluation probable stroke Subjective Observations The pt was awake, sitting up in chair and working with OT, who allowed and observed entirety of clinical swallow evaluation. The pt initially denied dysphagia symptoms prior to CVA event but later recalled consistent coughing with liquids if taken when reclined. He noted his speech to be not as clear as usual and denied expressive and receptive language difficulties. Reported by Patient Other Symptoms Difficulty swallowing liquids Comment when reclined; must sit bolt upright. Current Diet Nothing by mouth Baseline Feeding Method Independent in self-feeding Objective Assessment Mental Status Alert,Responsive,Cooperative Oral Integrity WFL Dentition Missing teeth Lip Function Within normal limits Observation of Lips at Rest Symmetrical Pucker Within normal limits Lip Retraction Within normal limits Alternating Pucker/Lip Retraction Within normal limits Tongue Function Mild impairment Tongue Protrusion Deviates to the right Tongue Retraction Within normal limits Tongue Lateralization Within normal limits Jaw Function Within normal limits Observations of Jaw at Rest Within normal limits Jaw Opening Within normal limits Jaw Closing Within normal limits Jaw Lateralization Within normal limits Hard/Soft Palate Function Within normal limits Observations of Hard/Soft Palate Within normal limits Nasality Within normal limits Phonation Within normal limits Respiratory Sufficiency Within normal limits Comment Minimal right side facial and labial droop observed. Patches of white coloring on tongue were observed and did not remove or change with oral swab. Unsure if thrush may be present. Nsg was notified and asked to evaluate. Food and Liquid Trials Position During Assessment Upright (90 degrees) Liquids Trialed Ice chips,Thin Solids Trialed Dysphagia Mechanical, Mechanical Soft,Regular Administration Type Controlled cup sip,Cup consecutive sips,Straw,Self- feeding Oral Impairment Mildly impaired Oral Phase Comments Right side lingual weakness and deviation observed. Pt able to adequately perform oral prep and swallow phases. Mild oral motor weakness and reduced coordination results in mild dysarthria symptoms. Pharyngeal Impairment Within functional limits Pharyngeal Phase Comments Occasional single coughs were observed intermittently throughout the evaluation. The pt denied swallow problem and noted that he coughs frequently d/t COPD. Trialed swallow of thin liquid with head turned to right/weak side . The pt tolerated first trial without overt s/sx of aspiration but coughed immediately and forcefully with 2nd trial. The strategy was discontinued and not recommended for oral intake. Fatigue/Endurance Endurance WNL Strategies Attempted Head rotation Response/Comments Aspiration Findings Swallowing Function Oropharyngeal phase dysphagia Severity of Swallow Impairment Mildly impaired Contributing Factors to Swallow Reduced oral strength/ Impairment coordination/sensation, Impaired airway protection Prognosis Good Based on Cognitive status,Family support,Age,Duration of symptoms/severity Comment The pt presents with mild oropharyngeal dysphagia secondary to right side weakness of oral musculature, especially tongue, and of pharyngeal musculature suspected. The pt naturally tilts head down while eating and drinking and makes intentional effort to sit upright with oral intake to avoid coughing. Screening of speech and language was also administered . The pt was 100% intelligible with mildly slurred/imprecise articulation which is not baseline function. He participated appropriately in conversation and exhibited and reported no difficulty with expressive and receptive language skills. He made and responded to jokes appropriately. The pt was educated on evaluation results and recommendations. He was encouraged to increase attention to swallow safety and instructed in basic oral motor exercises to increase muscular function and coordination for swallow and speech. Also encouraged to seek outpatient Speech Therapy services if symptoms do not improve or if they worsen after discharging home. The pt verbalized understanding and agreement. Impact on Safety and Functioning Risk for aspiration Recommendations Instrumental Assessment No Swallowing Treatment Yes Frequency Daily Duration over hospital stay Recommended Solids Regular Recommended Liquids Thin Safety Precautions/Swallowing Reduce distractions,Remain Recommendations upright (90 degrees) during all oral intake,Upright position at least 30 minutes after meals,Small bites and sips when eating,Slow rate; swallow between bites Medication Recommendations As Tolerated Discharge Recommendations Home,Outpatient therapy Education Patient/Caregiver Education Described results of evaluation,Patient expressed understanding of evaluation, Patient expressed agreement with goals & treatment plans Goals Short-term Goals 1. The pt will use safe swallow strategies independently to reduce risk of aspiration. 2. The pt will perform oral motor exercises to increase strength and coordination of oral musculature to improve oral prep/swallow phases and speech clarity. Long-term Goals 1. The pt will tolerate least restrictive diet to meet his nutrition and hydration needs. 2. The pt will produce speech and language skills WFL to effectively communicate his wants/needs/ideas/concerns and participate in medical decisions.
--- NOTE | 2020-08-22 16:16 | CM.DANOTE ---
Discharge Planning/Care Management DCP: assessment: case received, EMR reviewed and met now with pt and his . Introduces self and role. Pt is a 64 year old male who admitted yesterday afternoon to care of hospitalist team. Payer: Medicare and [facility] Admission status: OBS. Pt worked with PT/OT/DRAPERY AND UPHOLSTERY ESTIMATOR today and has been cleared for home setting with consideration of OUPT PT. Pt reports he is very eager to d/c and wonders why he has not seen the doctor yet today. Checked in with Dr. Davis. She reports she does plan to dc pt today after she reviews his ECHO. Pt and are updated. Pt expresses understanding, saying that he just needed an idea of when he would go. His , who is diabetic, is leaving now to get some food and will return later in hope that the d/c will be in place. Bobbi DAVIES team updated. CM Discharge Assessment Start: 08/22/20 16:12 Freq: Status: Active Protocol: Document 08/22/20 16:15 [facility] (Rec: 08/22/20 16:16 [facility] [id number]) Discharge Planning Assessment Advance Directives? No Advance Directives on File No History Provided By Patient,Family Member,Medical Record Prior Living Arrangements House Household Members spouse Independent with ADL's Yes Is patient alert and oriented? Yes
--- NOTE | 2020-08-22 17:11 | PM.DS.1 ---
History of Present Illness History of Present Illness Chief complaint: right side drooling, feels weird Narrative: The patient is a 64-year-old male with a history of coronary artery disease, COPD, type 2 diabetes, hypertension, hyperlipidemia who was in his usual state of health until Saturday morning. The patient awoke from sleep and felt ?not right. He states he went to have coffee in noted drooling out the right side of his mouth, he also noted that when he tried to bring his cup to his mouth he was unable to do so. He had some associated right hand right arm weakness. He had a twinge of pain in the right arm. He reports that his speech is abnormal in not as crisp as usual. The patient has no history of stroke. He presented to the emergency room for evaluation. In the emergency director of casework department CT was obtained which was negative. Patient had a EKG which showed no acute ST-T changes. Patient is on Plavix and aspirin for his cardiac disease. He also reports smoking a pack per day. He has no family history of stroke. Patient is admitted to the hospital for inpatient evaluation probable stroke Discharge Providers Provider Date of admission: 08/21/20 13:01 Discharge Date: 08/22/20 Consults: 08/21/20 16:13 Consult to Discharge Planning Routine Comment: Consult to Occupational Therapy Evaluate & Treat Comment: Physician Instructions: Evaluate and treat Consult to Physical Therapy Evaluate & Treat Comment: Physician Instructions: Evaluate and Treat Consult to Speech Therapy Evaluate & Treat Comment: Physician Instructions: Evaluate and treat Discharge provider: Balbina Davis MD Summary Hospital Course Discharge Diagnosis: 1. Acute CVA, present on admission 2. Hyperlipidemia 3. Type 2 diabetes 4. Coronary artery disease is status post stenting in December of 2019 5. Morbid obesity 6. Tobacco dependence Hospital Course: Patient was admitted to the hospital for evaluation of probable stroke. He had right facial droop with drooling out the right side of his mouth, right hand clumsiness and dysarthria. The patient was seen by speech pathology PT and OT. PT OT recommended outpatient therapy. Speech pathology advanced his diet. The patient underwent an echocardiogram which showed a [id number] Marge enlarged left ventricle with reduced systolic function 45-50%. There was apical septal apical inferior wall that was found to be severely hypokinetic. The distal anterior wall and distal anterolateral wall extending to the apex were hypokinetic. There was no thrombus in the left ventricle. The right ventricle appeared grossly normal there was no valvular abnormalities. Compared to his prior echo in December distal anterior wall hypokinesis was new on this study. Patient underwent head CT which was unremarkable for an acute stroke. Patient underwent CT angio of the head and neck which showed no significant intracranial or carotid stenosis. Attempts were made to have a MRI of the brain. It however the patient did not tolerate the study in the MRI was aborted. Patient had mildly elevated troponin 0.065 and 0.078. He had no chest pain. This This was felt to be related to his stress and unrelated to any cardiac event. Morning the patient noted his right facial droop had improved, speech had improved, right hand clumsiness was better. He was deemed appropriate for discharge and arrangements were made for him to discharge home. Status at Discharge Cognitive/behavioral status at discharge: oriented Functional status at discharge: independent ambulation Overall status at discharge: patient is back to baseline Time Spent with Patient Time spent: Less than 30 minutes Exam Vital Signs (past 8 hours): - 08/22/20 09:18 08/22/20 12:00 08/22/20 13:04 Temperature 98 F Pulse Rate 57 L 64 63 Respiratory Rate 22 16 Blood Pressure 142/74 H 158/84 H Pulse Oximetry 94 93 08/22/20 13:57 08/22/20 15:30 08/22/20 16:00 Temperature 97.4 F L Pulse Rate 64 62 Respiratory Rate 20 Blood Pressure 160/70 H 158/79 H Pulse Oximetry 93 93 Oxygen Delivery Method Room Air Oxygen Flow Rate 0 Narrative Exam Narrative: Pleasant male in no acute distress Lungs: Clear to auscultation Cardiac exam: Regular rate and rhythm normal S1-S2 Abdomen: Soft and nontender Extremities: No edema Neuro exam: Unchanged from yesterday Objective Labs Result Diagrams: 08/21/20 12:25 08/21/20 12:25 Labs: Laboratory Results - last 24 hr 08/21/20 08/21/20 08/21/20 12:25 12:25 18:02 Hemoglobin A1c 10.2 H Total Creatine Kinase 126 CK-MB (CK-2) 3.74 H CK-MB (CK-2) Rel Index 3.0 Troponin I 0.078 H TSH 3.24 U Opiates 300ng/mL cut Ur Oxycodone Screen Urine Methadone Screen Ur Barbiturates Screen U Tricyclic Antidepress Ur Phencyclidine Scrn Ur Amphetamines Screen U Methamphetamines Scrn Ur MDMA Scrn (Ecstasy) U Benzodiazepines Scrn Urine Cocaine Screen U Marijuana (THC) Screen 08/22/20 01:40 Hemoglobin A1c Total Creatine Kinase CK-MB (CK-2) CK-MB (CK-2) Rel Index Troponin I TSH U Opiates 300ng/mL cut Negative Ur Oxycodone Screen Negative Urine Methadone Screen Negative Ur Barbiturates Screen Negative U Tricyclic Antidepress Negative Ur Phencyclidine Scrn Negative Ur Amphetamines Screen Negative U Methamphetamines Scrn Negative Ur MDMA Scrn (Ecstasy) Negative U Benzodiazepines Scrn Negative Urine Cocaine Screen Negative U Marijuana (THC) Screen Negative PFSH Medical History CAD (coronary artery disease) COPD (chronic obstructive pulmonary disease) Diabetes mellitus HTN (hypertension) Hyperlipidemia Myocardial infarct Other bursal cyst, left elbow Patent pressure equalization (PE) tubes, bilateral Smoker Surgical History H/O heart artery stent H/O: vasectomy Family History (Updated 08/21/20 @ 16:24 by Balbina Davis MD) Mother Cancer Father Alcoholic dependence syndrome Social History household members: spouse Smoking Status: Current every day smoker alcohol intake: current Discharge Assessment & Plan Assessment and Plan Assessment: 1. Acute CVA 2. Hyperlipidemia 3. Type 2 diabetes 4. Morbid obesity 5. Nicotine dependence, counseled to quit 6. Coronary artery disease, recent coronary stent in December of 2019 Plan of Treatment: As the patient had a coronary stent placed in December of 2019 he will need to continue aspirin and Plavix for 1 year. His atorvastatin was increased from 20 q.day to 80 mg daily He will follow-up with primary care provider for further evaluation Would recommend adding glyburide to improve hyperglycemia as his hemoglobin A1c was elevated at 10 Discharge Plan Discharge Plan Patient Disposition: Home Discharge orders & Medications Prescriptions: New atorvastatin [Lipitor] 20 mg Tablet 80 mg PO BEDTIME Qty: 30 RF: 0 Continued ASPIRIN (Aspirin Low Dose) 81 mg PO Q DAY Qty: 0 RF: 0 Clopidogrel Hydrogen Sulfate (Plavix) 75 mg PO Q DAY Qty: 0 RF: 0 Metoprolol Tartrate (Lopressor) 50 mg PO BID Qty: 0 RF: 0 metformin 500 mg tablet 1,000 mg PO BID RF: 0 Discontinued Simvastatin (Zocor) 40 mg PO Qty: 0 RF: 0 Discharge Health Status Multidrug resistant organism: No MDRO Diet/Activity/Treatments Diet: Low-sodium and Low-cholesterol Diet comment: Follow instructions per speech therapy Visit Report/Discharge Packet Instructions: Ischemic Stroke Discharge Data Attending Provider: Balbina Davis VTE Deep Vein Thrombosis/Pulmonary Embolism Present on Admission: No
--- NOTE | 2020-08-22 17:45 | PC.NURSE ---
Pt discharged to home per MD. Instructions provided by RN to pt and . Pt verbalized all instructions. IV removed. Tele removed. pt escorted out via w/c with all personal belongings in stable condition.
--- NOTE | 2020-09-01 20:53 | PC.NURSE ---
Late Entry; NS infusion initiated 1/3 at 16:55, stopped per MD order 08/22 at 01:49.
== END 2020-08-22 17:40 | disposition home or self-care (01) ==
LOC: ED 12:00 → AC 13:03
PROVIDERS: Admitting Provider Internal Medicine; Emergency Provider Emergency Medicine; Referring Provider Emergency Medicine; Visit Provider Internal Medicine
DX: I63.9 Cerebral infarction, unspecified (principal); F17.210 Nicotine dependence, cigarettes, uncomplicated; I25.10 Atherosclerotic heart disease of native coronary artery without angina pectoris; I25.2 Old myocardial infarction; I10 Essential (primary) hypertension; E78.5 Hyperlipidemia, unspecified; J44.9 Chronic obstructive pulmonary disease, unspecified; E11.9 Type 2 diabetes mellitus without complications; Z79.84 Long term (current) use of oral hypoglycemic drugs; E66.01 Morbid (severe) obesity due to excess calories; Z79.01 Long term (current) use of anticoagulants; Z20.822 Contact with and (suspected) exposure to COVID-19
CPT/HCPCS: 36415; 70450; 70496; 70498; 71045; 80048; 80305; 82550; 82553; 82962; 83036; 84443; 84484; 85025; 85610; 85730; 87635; 92610; 93005; 94640; 94760; 96361; 96372; 96374; 97161; 97165; 97530; 99284; 99285; G0378; C8929; J1610; J1650; Q9957; Q9967

== ENCOUNTER → 2023-06-05 12:28 | Outpatient (CLI) | payer MEDICARE, OTHER, SELFPAY ==
[2020-08-21 14:03] VITALS: BMI 43.7
--- NOTE | 2023-06-05 | DI.ECHO.S_ITS ---
[place] [facility]---------+ [facility] +---------+ : : [address] : : : : [id number] : : : : Phone: [phone]+ Echocardiogram Report + + :Name: SAGE GUEVARA Study Date: 06/05/2023 Height: 71 in : :[facility] ReadingLocation: Weight: 290 lb : : Gender: Male BSA: 2.5 m2 : :: 1955 Age: 67 yrs BP: 144/81 mmHg: :Reason For Study: ATHEROSCLEROTIC HEART DISEASE : :Ordering Physician: TEN, : :SANDEEP Performed By: Elke Fierro : :Referring: MADELEINE HOGAN : + + Interpretation Summary 1) Severely enlarged left ventricle with mildly reduced systolic function (EF 45-50%). 2) Apical septum and apical inferior wall are severely hypokinetic. The distal anterior wall and distal anterolateral wall extending to the apex are hypokinetic. 3) Mildly enlarged right ventricle with normal function. 4) No significant valvular abnormalities. 5) Compared to the Echo done 08/22/2020, LV is more enlarged on this study. Procedure: A two-dimensional transthoracic echocardiogram with color flow and Doppler was performed. The study quality was technically difficult. A contrast injection of Definity was performed to improve assessment of LV function. The patient had occasional PVCs during the exam. The heart rate ranged between 52-79 bpm during the study. Left Ventricle: The left ventricle is severely dilated. The estimated left ventricular end diastolic volume is 203 ml. There is normal left ventricular wall thickness. The ejection fraction is estimated to be 45-50%. Apical septum and apical inferior wall are severely hypokinetic. The distal anterior wall and distal anterolateral wall extending to the apex are hypokinetic. Right Ventricle: The right ventricle is mildly dilated. The right ventricular systolic function is normal. Atria: The left atrial size is normal. Right atrial size is normal. There is no Doppler evidence for an interatrial shunt. Mitral Valve: The mitral valve leaflets appear mildly thickened, but open well. There is mild mitral annular calcification. There is trace mitral regurgitation. Aortic Valve: The aortic valve is trileaflet. The aortic valve opens well. There is no aortic valve stenosis. No aortic regurgitation is present. Tricuspid Valve: The tricuspid valve is normal in structure and function. There is trace tricuspid regurgitation. Pulmonary artery pressures cannot be estimated because of the lack of a measurable TR jet velocity. Pulmonic Valve: The pulmonic valve is not well visualized. There is no pulmonic valvular regurgitation. Great Vessels: The aortic root is normal size. The dimensions of the ascending aorta are normal. The inferior vena cava was not visualized. Pericardium/ Pleura There is no pericardial effusion. There is no pleural effusion. MMode/2D Measurements & Calculations LVIDd: 7.0 cm LVOT diam: 2.4 cm LVIDs: 5.5 cm Ao root diam: 3.2 cm FS: 21.5 % asc Aorta Diam: 3.5 cm IVSd: 0.97 cm LVPWd: 0.79 cm LV gómez. diameter/BSA (cm/m^2): 2.9 LV sys. diameter/BSA (cm/m^2): 2.2 LA A2 area: 18.3 cm2 RA long axis: 4.7 cm LA A4 area: 17.0 cm2 RA area: 14.7 cm2 LA length (vol): 4.8 cm RA vol: 38.9 ml LA vol: 55.4 ml RA : 15.8 ml/m2 LA vol index: 22.4 ml/m2 RVD1 (basal): 4.5 cm RVD2 (mid): 3.5 cm TAPSE: 1.9 cm Doppler Measurements & Calculations Ao V2 max: 179.5 cm/sec LVOT Max Elian: 75.1 cm/sec Ao V2 mean: 125.8 cm/sec LV V1 max P.3 mmHg Ao max P.9 mmHg LV V1 VTI: 15.4 cm Ao mean P.0 mmHg LILLIE(I,D): 1.8 cm2 Ao V2 VTI: 38.3 cm LILLIE(V,D): 1.9 cm2 sev ratio: 0.40 LILLIE indexed to BSA (cm^2/m^2): 0.74 MV E max elian: 68.5 cm/sec PA V2 max: 91.1 cm/sec MV A max elian: 102.5 cm/sec PA V2 mean: 68.9 cm/sec MV E/A: 0.67 PA mean P.0 mmHg Med Peak E' Elian: 3.3 cm/sec PA pr(Accel): 25.9 mmHg E/E' med: 20.9 Lat Peak E' Elian: 5.6 cm/sec E/E' lat: 12.1 E/e' average: 16.5 MV dec time: 0.25 sec SV(LVOT): 70.2 ml Reading Physician:03:24 PM
== END ==
PROVIDERS: Referring Provider Internal Medicine Cardiovascular Disease; Visit Provider Internal Medicine Cardiovascular Disease
DX: I25.10 Atherosclerotic heart disease of native coronary artery without angina pectoris (principal); I51.7 Cardiomegaly
CPT/HCPCS: C8929; Q9957

== ENCOUNTER → 2025-03-11 10:36 | Outpatient (CLI) | payer MEDICARE, OTHER, SELFPAY ==
[2025-03-02 15:24] VITALS: BMI 43.7
--- NOTE | 2025-03-11 10:38 | DI.US.S_ITS ---
PROCEDURE: US ARTERIAL DUPLEX LE LT INDICATIONS: Atherosclerosis of [place] arteries of extremities TECHNIQUE: Color and pulse Doppler interrogation was performed of the left lower extremity arterial system, with image documentation. COMPARISON: None. FINDINGS: Common femoral artery: 130 cm/sec, with triphasic flow. Deep femoral artery: 93 cm/sec, with biphasic flow. Proximal superficial femoral artery: 126 cm/sec, with triphasic flow. Mid superficial femoral artery: 120 cm/sec, with biphasic flow. Distal superficial femoral artery: 88 cm/sec, with biphasic flow. Popliteal artery: 72 cm/sec, with biphasic flow. Posterior tibial artery: 75 cm/sec, with biphasic flow. Anterior tibial artery/dorsalis pedis: 43 cm/sec, with biphasic flow. Lao-scale imaging description: Mild degree of plaque throughout the left lower extremity arterial system. IMPRESSION: No hemodynamically significant stenosis involving left lower extremity arterial system. Dictated by: Genaro Cooley M.D. on 03/11/2025 at 14:50 Approved by: Genaro Cooley M.D. on 03/11/2025 at 14:52
== END ==
PROVIDERS: PCP Internal Medicine; Referring Provider Neurological Surgery; Visit Provider Neurological Surgery
DX: I70.229 Atherosclerosis of native arteries of extremities with rest pain, unspecified extremity (principal)
CPT/HCPCS: 93926